=== PATIENT | male | born 1970 | race Caucasian/White ===

== ENCOUNTER 2017-01-07 19:15 | Inpatient (IN) | payer OTHER ==
[~2017-01-07] VITALS: Ht 188 cm; Wt 100.8 kg
[2017-01-07] MEDS ORDERED: PRLSR20 PO (20:54)
--- NOTE | 2017-01-07 21:14 | DIAGNOSTIC IMAGING REPORT ---
CHEST ONE VIEW PORTABLE CLINICAL HISTORY: chest pain dyspnea COMPARISON STUDY: No previous studies for comparison. FINDINGS: The bones soft tissues and hemidiaphragms are normal. The cardiomediastinal silhouette is normal. The lungs are clear. The pulmonary vasculature is normal. IMPRESSION: Negative chest. Electronically signed by: Hermilo Saleem M.D. 01/07/2017 9:13 PM Dictated Date/Time: 01/07/2017 9:13 PM
[2017-01-07 21:17] LABS: INR 0.9 (0.9-1.1); PROTHROMBIN TIME (PATIENT) 9.9 SECONDS (9.0-12.0)
[2017-01-07 21:26] LABS: ALB/GLOB RATIO 0.9 (0.9-2); CALCIUM 9.3 mg/dl (8.5-10.1); CKMB/CK RATIO 0.4 (0-3.0); CREATININE 0.94 mg/dl (0.60-1.40); HEMATOCRIT 43.3 % (42-52); MEAN CELL VOLUME 88.9 fL (80-100); MEAN CORPUSCULAR HEMOGLOBIN 31.6 pg (25-34); MEAN CORPUSCULAR HGB CONC 35.6 g/dl (32-36); MEAN PLATELET VOLUME 9.6 fL (7.4-10.4); PLATELET COUNT 301 K/uL (130-400); POTASSIUM 3.6 mmol/L (3.5-5.1); RED BLOOD COUNT 4.87 M/uL (4.7-6.1); WHITE BLOOD COUNT 8.66 K/uL (4.8-10.8)
[2017-01-07] MEDS ORDERED: SODIUM CHLORIDE 0.9% 1000ML 1,000 ML IV STA (22:46)
[2017-01-07 23:04] LABS: URINE APPEARANCE CLEAR (CLEAR); URINE BILIRUBIN NEG (NEG); URINE COLOR YELLOW; URINE NITRITE NEG (NEG); URINE SPECIFIC GRAVITY 1.026 (1.000-1.030); UROBILINOGEN NEG (NEG); ZZUR CULT IF INDIC CLEAN CATCH NO
[2017-01-07 23:09] LABS: MANUAL MICROSCOPIC REQUIRED? NO; REVIEW REQ? NO
[2017-01-07 23:31] LABS: BENZODIAZEPINE, URINE NEG (NEG); COCAINE,URINE NEG (NEG); PHENCYCLIDINE, URINE NEG (NEG)
[2017-01-08] MEDS ORDERED: NURSING VERBAL MED ORDER ONE ×2 (01:30→15:45)
[2017-01-08 01:55] VITALS: O2SAT 99
[2017-01-08] MEDS ORDERED: ACETAMINOPHEN 325 MG TAB PO PRN (02:00)
[2017-01-08] MEDS ORDERED: MAGNESIUM HYDROXIDE SUSP 30 ML UDC PO PRN (02:00)
[2017-01-08] MEDS ORDERED: SODIUM CHLORIDE 0.65% NA SOLN 45 ML (OCEAN) PRN (02:00)
[2017-01-08] MEDS ORDERED: BISMUTH SUBSALICYLATE PER ML OMNICELL CHARGE PO PRN (02:00)
[2017-01-08] MEDS ORDERED: ALUMINUM/MAGNESIUM SUSP 30 ML UDC PO PRN (02:00)
[2017-01-08] MEDS ORDERED: hydrOXYzine HCL 25 MG TAB PO PRN ×2 (02:00)
[2017-01-08 03:00] VITALS: BP 122/82; PULSE 72; TEMP 36.9; Ht 188 cm; Wt 100.8 kg
--- NOTE | 2017-01-08 06:07 | EMERGENCY ROOM VISIT NOTE ---
History First contact with patient: 21:28 Chief Complaint: CHEST PAIN Stated Complaint: CHEST PAINS Nursing Triage Summary: pt c/o cp for ast week and is getting worse and increased in frequncy History of Present Illness The patient is a 46 year old male who presents to the Emergency Room with complaints of intermittent chest pain for the past week that is increasing in severity. Patient states the chest pain has been intermittent and lasts for 5- 10 minutes at first 2-3 times a day to the left upper chest. He complains of some nausea and mild source of breath. No recent travel. Patient states she's been stressed lately and feels depressed. No thoughts of suicidal or homicidal ideations. No delusions. Patient denies abdominal pain, fever, chills, cough, congestion, leg pain or swelling. No drug use. He does not smoke. He is stressed test 10 years ago that was normal per patient. Review of Systems See HPI for pertinent positives & negatives. A total of 10 systems reviewed and were otherwise negative. Past Medical/Surgical History Depression, asthma, GERD Social History Smoking Status: Former Smoker Occupation Status: [employer] student Current/Historical Medications Scheduled Omeprazole (Prilosec), 20 MG PO QAM Allergies Coded Allergies: Ibuprofen (Verified Allergy, Unknown, stomach sensitivity, 01/07/17) Prednisone (Verified Allergy, Unknown, sob, 01/07/17) Sertraline (Verified Allergy, Unknown, nerves felt like on fire, 01/07/17) Physical Exam Vital Signs Date Time Temp Pulse Resp B/P Pulse Ox O2 Delivery O2 Flow Rate FiO2 01/08/17 01:55 85 16 122/82 99 01/08/17 01:03 85 16 122/82 99 Room Air 01/08/17 00:24 86 01/07/17 22:48 101 20 128/79 Room Air 01/07/17 20:37 Room Air 01/07/17 20:37 97 01/07/17 20:24 106 01/07/17 19:24 36.9 108 18 141/87 98 Room Air Physical Exam VITALS: Vitals are noted on the nurse's note and reviewed by myself. Vital signs stable. GENERAL: Pleasant male mildly depressed appearing, in no acute distress, nondiaphoretic, well-developed well-nourished. SKIN: The skin was without rashes, erythema, edema, or bruising. There is no tenting of the skin. Capillary reflex less than 2 seconds. HEAD: Normocephalic atraumatic. EARS: External auditory canals clear, tympanic membranes pearly topete without erythema or effusion bilaterally. EYES: Pupils equal round and reactive to light and accommodation. Conjunctivae without injection, sclerae without icterus. Extraocular movements intact. NOSE: Patent, turbinates without inflammation or discharge. MOUTH: Mucous membranes moist. Pharynx without erythema or exudate. Uvula midline. Airway patent. Tongue does not deviate. NECK: Supple without nuchal rigidity. No lymphadenopathy. No thyromegaly. Cervical spine is nontender. No JVD. HEART: Regular rate and rhythm without murmurs gallops or rubs. Chest nontender to palpation LUNGS: Clear to auscultation bilaterally without wheezes, rales or rhonchi. No dullness to percussion. No retractions or accessory muscle use. ABDOMEN: Positive bowel sounds x 4. Normal tympanic percussion. Soft, nontender, without masses or organomegaly. Ferguson sign negative. No guarding or rebound tenderness. MUSCULOSKELETAL: No muscle atrophy, erythema, or edema noted. NEURO: Patient was alert and oriented to person place and time. Normal sensation to light and sharp touch. No focal neurological deficits. Psych: Cooperative pleasant and depressed appearing Medical Decision & Procedures Laboratory Results 01/07/17 20:30 01/07/17 20:30 Test 01/07/17 20:30 01/07/17 20:42 01/07/17 22:15 01/07/17 23:10 Red Blood Count 4.87 M/uL (4.7-6.1) Mean Corpuscular Volume 88.9 fL (80-100) Mean Corpuscular Hemoglobin 31.6 pg (25-34) Mean Corpuscular Hemoglobin Concent 35.6 g/dl (32-36) RDW Standard Deviation 42.7 fL (36.4-46.3) RDW Coefficient of Variation 13.2 % (11.5-14.5) Mean Platelet Volume 9.6 fL (7.4-10.4) Prothrombin Time 9.9 SECONDS (9.0-12.0) Prothromb Time International Ratio 0.9 (0.9-1.1) Activated Partial Thromboplast Time 26.1 SECONDS (21.0-31.0) Partial Thromboplastin Ratio 1.0 D-Dimer 300 ug/L FEU (0-500) Anion Gap 10.0 mmol/L (3-11) Est Creatinine Clear Calc Drug Dose 124.8 ml/min Estimated GFR () 112.2 Estimated GFR (Non- 96.8 BUN/Creatinine Ratio 26.0 (10-20) Calcium Level 9.3 mg/dl (8.5-10.1) Total Bilirubin 0.4 mg/dl (0.2-1) Aspartate Amino Transf (AST/SGOT) 35 U/L (15-37) Alanine Aminotransferase (ALT/SGPT) 49 U/L (12-78) Alkaline Phosphatase 74 U/L (45-117) Total Creatine Kinase 369 U/L (39-308) Creatine Kinase MB 1.6 ng/ml (0.5-3.6) Creatine Kinase MB Ratio 0.4 (0-3.0) Total Protein 8.5 gm/dl (6.4-8.2) Albumin 4.0 gm/dl (3.4-5.0) Globulin 4.5 gm/dl (2.5-4.0) Albumin/Globulin Ratio 0.9 (0.9-2) Thyroid Stimulating Hormone (TSH) 3.430 uIu/ml (0.300-4.500) Chemistry Specimen Hemolysis Bedside Troponin I 0.000 ng/ml (0-0.045) Urine Color YELLOW Urine Appearance CLEAR (CLEAR) Urine pH 6.0 (4.5-7.5) Urine Specific [place] 1.026 (1.000-1.030) Urine Protein NEG (NEG) Urine Glucose (UA) NEG (NEG) Urine Ketones NEG (NEG) Urine Occult Blood NEG (NEG) Urine Nitrite NEG (NEG) Urine Bilirubin NEG (NEG) Urine Urobilinogen NEG (NEG) Urine Leukocyte Esterase NEG (NEG) Urine Opiates Screen NEG (NEG) Urine Methadone, Qualitative NEG (NEG) Urine Barbiturates NEG (NEG) Urine Phencyclidine (PCP) Level NEG (NEG) Ur Amphetamine/Methamphetamine NEG (NEG) MDMA (Ecstasy) Screen NEG (NEG) Urine Benzodiazepines Screen NEG (NEG) Urine Cocaine Metabolite NEG (NEG) Urine Marijuana (THC) NEG (NEG) Troponin I < 0.015 ng/ml (0-0.045) Medications Administered Medications (Trade) Dose Ordered Sig/Valeriano Route Start Time Stop Time Status Last Admin Dose Admin Sodium Chloride (Nss 1000ml) 1,000 ml @ 999 mls/hr Q1H1M STAT IV 01/07/17 22:46 01/07/17 23:46 DC 01/07/17 23:02 999 MLS/HR ED Course Prior records/ancillary studies reviewed. Triage Nursing notes reviewed. The patient's history was concerning for chest pain depression. Differential diagnosis: Etiologies such as cardiac ischemia, aortic dissection, pulmonary embolism, pneumonia, pneumothorax, musculoskeletal, infections, pericarditis, myocarditis , esophageal rupture, gastrointestinal, depression as well as others were entertained. Physical examination: As above. ER treatment provided: By mouth fluids On reassessment the patient felt better. Diagnostic interpretation by me: The electrocardiogram was negative for pathologic change. Normal sinus, normal intervals, no acute ST-T wave changes. Impression normal sinus rhythm interpreted by myself The labs revealed negative troponin 2 Negative d-dimer Imaging studies: Chest x-ray as aboveCHEST ONE VIEW PORTABLE CLINICAL HISTORY: chest pain dyspnea COMPARISON STUDY: No previous studies for comparison. FINDINGS: The bones soft tissues and hemidiaphragms are normal. The cardiomediastinal silhouette is normal. The lungs are clear. The pulmonary vasculature is normal. IMPRESSION: Negative chest. Electronically signed by: Hermilo Saleem M.D. Consultation: A consultation was placed with the [facility] specialists, S. and evaluated the patient. The case was discussed and diagnostics were reviewed. The patient was evaluated in the ER for further treatment. They recommended inpatient admission Exam and history seem consistent with chest pain that is noncardiac in etiology along with depression. Patient was evaluated by behavioral health and recommends admission. I feel like this is reasonable. Patient was admitted to 3 S. in stable condition. Patient was agreeable. Patient denied suicidal or homicidal ideations to myself. Patient was admitted for behavioral health concerns 20 years ago. He has not been on any recent psychiatric medications.By the evaluation outlined above emergent etiologies such as cardiac ischemia, aortic dissection, pulmonary embolism, pneumonia, pneumothorax , infections, pericarditis, myocarditis, gastrointestinal, as well as others were deemed relatively unlikely. The pt informed about the findings as listed above. All questions were answered and pleased with the treatment. Case reviewed with my attending Medical Decision As above Impression Primary Impression: Depression Additional Impression: Non-cardiac chest pain Departure Information Dispostion Other (behavioral health) Condition FAIR Referrals Twlya Russo (PCP) Patient Instructions [facility] Problem Qualifiers Primary Impression: Depression Depression Type: unspecified Qualified Codes: F32.9 - Major depressive disorder, single episode, unspecified
[2017-01-08 07:29] VITALS: BP_SYST 118; BP_DIAS 75; BP_DIAS 79; PULSE 75; TEMP 36.5
[2017-01-08] MEDS: ESCITALOPRAM OXALATE 10 MG TAB PO SCH (12:47)
[2017-01-08] MEDS ORDERED: PANTOprazole SOD 40 MG TAB PO ONE (16:00)
--- NOTE | 2017-01-08 17:01 | Psychiatric History & Physical ---
History Identifying Data Aristides Crawford is a 46-year-old male. Aristides Crawford was admitted on a 201 voluntary commitment. Patient is admitted from home. The patient was brought to the ED by self transport. Information provided by the patient is considered to be reliable. Chief Complaint "Chest pain". History of Present Illness 46 year old male who presents to hospital with chest pain. He admits to feeling more depressed and anxious over the course of the past couple months and gradually worsening. Aggravating his mood are triggers that friend in September 2016 and his 75yo mother recently diagnosed with breast cancer and had mastectomy and lymph nodectomy and following this she suffered a stroke. 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 Denies any manic episodes. Chronic history of excessive anxiety about things such as global warming, pollution and overpopulation. Poor concentration. Low energy level. Decreased energy. Sleeping 4 to 6 hours per night. Decreased interest in photography. Denies thoughts to harm himself or others currently. "My reason for being here is that my is that my problems have gotten so bad that I don't want to get to point of having thoughts to harm myself. Denies auditory hallucinations. Hypnopompic visual hallucinations upon awakening. Denies paranoia. Past Psychiatric History Current OP Treatment: no current treatment Prior OP Treatment: therapist (Sammi Ballard around 1999.) Prior Psych Hospitalizations: [facility] (1990) Past Medical/Surgical History History of Obesity: No History of HTN: No History of Diabetes: No History of Heart Disease: No History of Dyslipidemia: No History of Concussion/Seizure: No Problem List: (1) Generalized anxiety disorder GERD. Allergies Allergies: Coded Allergies: Ibuprofen (Verified Allergy, Unknown, stomach sensitivity, 01/07/17) Prednisone (Verified Allergy, Unknown, sob, 01/07/17) Sertraline (Verified Allergy, Unknown, nerves felt like on fire, 01/07/17) Home Medications Scheduled Omeprazole (Prilosec), 20 MG PO QAM Family History Mother had a possible history of depression and attempted suicide in the mid to late 1969's. Sister has bipolar disorder. Brother - drug abuse. Father - alcohol abuse. Nephew - drug and alcohol abuse. Sister - drug abuse. Diabetes - maternal uncle, maternal grandmother and mother (borderline). 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.) Relationship History: never Children: None Spiritual Affiliation: None Legal History: none Abuse History: none Review of Systems Constitutional: see HPI Eyes: denies: as stated in HPI, blurred vision, discharge, double vision, eye pain, itching, no symptoms, other, photophobia, redness, tearing, visual changes ENT: denies: dental pain, ear discharge, ear pain, epistaxis, gum swelling, loss of hearing, mouth pain, mouth swelling, nasal congestion, nasal pain, no symptoms reported, other, rhinorrhea, see HPI, sore throat, stidor, throat swelling, tinnitus Cardiovascular: reports: chest pain (prior to admission) Respiratory: denies: SALINAS, PND, cough, cyanosis, no symptoms reported, orthopnea , other, see HPI, short of breath, sputum production, stridor, wheezing Gastrointestinal: denies no symptoms reported, denies see HPI, denies abdominal pain, denies constipation, denies diarrhea, denies nausea, denies vomiting, denies other Genitourinary - Male: denies: amenorrhea, impotence, no symptoms, other, penile discharge, penile itching, rash, see HPI, testicular pain, testicular swelling Musculoskeletal: denies no symptoms reported, denies see HPI, denies back pain , denies gout, denies joint pain, denies joint swelling, denies muscle pain, denies muscle stiffness, denies neck pain, denies other Integumentary: denies no symptoms reported, denies see HPI, denies change in color, denies change in hair/nails, denies dryness, denies lesions, denies lumps , denies rash, denies other Neurologic: denies: dizziness, focal weakness, general weakness, headache, lethargy, memory loss, no symptoms, numbness, other, paresthesias, pre-existing deficit, see HPI, seizure, tics, tingling, tremors, vertigo Endocrine: denies: as stated in HPI, cold intolerance, goiter, hair changes, heat intolerance, no symptoms, other, polydipsia, polyuria, skin changes Hematologic / Lymphatic: denies: abnormal clotting, adenopathy, anemia, as stated in HPI, easy bleeding, easy bruising, gums bleeding, no symptoms, other, petechiae Examination Physical Examination Reviewed and accepted physical exam completed by Bonnie Mayo PA-C. Vital Signs Vital Signs Past 12 Hours Date Time Temp Pulse Resp B/P Pulse Ox O2 Delivery O2 Flow Rate FiO2 01/08/17 07:29 36.5 75 16 118/75 118/79 01/08/17 06:52 Laboratory Results Last 24 Hours Test 01/07/17 20:30 01/07/17 20:42 01/07/17 22:15 01/07/17 23:10 White Blood Count 8.66 K/uL Red Blood Count 4.87 M/uL Hemoglobin 15.4 g/dL Hematocrit 43.3 % Mean Corpuscular Volume 88.9 fL Mean Corpuscular Hemoglobin 31.6 pg Mean Corpuscular Hemoglobin Concent 35.6 g/dl RDW Standard Deviation 42.7 fL RDW Coefficient of Variation 13.2 % Platelet Count 301 K/uL Mean Platelet Volume 9.6 fL Prothrombin Time 9.9 SECONDS Prothromb Time International Ratio 0.9 Activated Partial Thromboplast Time 26.1 SECONDS Partial Thromboplastin Ratio 1.0 D-Dimer 300 ug/L FEU Sodium Level 141 mmol/L Potassium Level 3.6 mmol/L Chloride Level 105 mmol/L Carbon Dioxide Level 26 mmol/L Anion Gap 10.0 mmol/L Blood Urea Nitrogen 24 mg/dl Creatinine 0.94 mg/dl Est Creatinine Clear Calc Drug Dose 124.8 ml/min Estimated GFR () 112.2 Estimated GFR (Non- 96.8 BUN/Creatinine Ratio 26.0 Random Glucose 104 mg/dl Calcium Level 9.3 mg/dl Total Bilirubin 0.4 mg/dl Aspartate Amino Transf (AST/SGOT) 35 U/L Alanine Aminotransferase (ALT/SGPT) 49 U/L Alkaline Phosphatase 74 U/L Total Creatine Kinase 369 U/L Creatine Kinase MB 1.6 ng/ml Creatine Kinase MB Ratio 0.4 Total Protein 8.5 gm/dl Albumin 4.0 gm/dl Globulin 4.5 gm/dl Albumin/Globulin Ratio 0.9 Thyroid Stimulating Hormone (TSH) 3.430 uIu/ml Chemistry Specimen Hemolysis Bedside Troponin I 0.000 ng/ml Urine Color YELLOW Urine Appearance CLEAR Urine pH 6.0 Urine Specific [place] 1.026 Urine Protein NEG Urine Glucose (UA) NEG Urine Ketones NEG Urine Occult Blood NEG Urine Nitrite NEG Urine Bilirubin NEG Urine Urobilinogen NEG Urine Leukocyte Esterase NEG Urine Opiates Screen NEG Urine Methadone, Qualitative NEG Urine Barbiturates NEG Urine Phencyclidine (PCP) Level NEG Ur Amphetamine/Methamphetamine NEG MDMA (Ecstasy) Screen NEG Urine Benzodiazepines Screen NEG Urine Cocaine Metabolite NEG Urine Marijuana (THC) NEG Troponin I < 0.015 ng/ml Mental Examination During interview pt is: alert and oriented, cooperative Appearance: appropriately dressed, appropriately groomed Eye contact is: fair Motor behavior is: steady gait & station Speech: normal in rate, rhythm & volume Affect: mood congruent Mood is: depressed, anxious Thought process: goal directed Thought content: reality based without delusions Suicidal thought are: denied Homicidal thoughts are: denied Hallucinations: visual (sees images upon awakening), denies auditory Cognition: memory grossly intact, attention grossly intact, language grossly intact Intelligence estimated to be: consistent with level of education Insight: good Judgement: good Impression / Recommendations Impression 46 year old male with progress worsening of depression and anxiety over the past few months that has progressed to point that he fears that he may harm himself. Risk Factors Assessment Male: Yes : Yes /single/: Yes Access to guns: No Previous psychiatric stay: Yes Protective Factors Assessment Tenriism beliefs: No : No Responsible for young children: No Employed: No Recommendations To address depression and anxiety and patient's fear of reaching point of harming himself will: -place patient on q15 minute checks -participate in groups and treatment milieu environment -assess appropriate disposition plans -discussed risks, benefits and alternatives of Lexapro including risk of increased suicidal thoughts and patient agrees to initiate at 10mg every morning. CPT Code Initial Hospital Care: [id number]
[2017-01-09 06:40] VITALS: BP_SYST 106; BP_SYST 112; BP_DIAS 67; BP_DIAS 78; PULSE 66; PULSE 71; TEMP 36.6
[2017-01-09] MEDS: ESCITALOPRAM OXALATE 10 MG TAB PO SCH (08:29)
[2017-01-09] MEDS: PANTOprazole SOD 40 MG TAB PO SCH (08:29)
--- NOTE | 2017-01-09 13:19 | Psychiatric Progress Notes ---
Progress Note Date of Service Jan 09, 2017. Interval History Patient admitted to address depression and anxiety. Started on Lexapro to address depression and anxiety. Chief Complaint "Mood improving". Subjective Patient was seen & assessed interval progress reviewed with Treatment Team. Patient reports that his mood is improving significantly with support of milieu therapy on unit. He is tolerating Lexapro well without any significant side effects. Review of Systems Constitutional: No chills, No fatigue, No fever, No problem reported, No sweats , No weakness, No weight loss ENT: No dental problems, No hearing loss, No nasal symptoms, No problem reported, No sore throat, No tinnitus, No trouble swallowing, No unusual epistaxis Respiratory: No cough, No dyspnea at rest, No dyspnea on exertion, No hemoptysis, No problem reported, No shortness of breath, No sputum, No wheezing Cardiovascular: No PND, No chest pain, No claudication, No edema, No orthopnea , No palpitations, No problem reported Abdomen: No GI bleeding, No constipation, No diarrhea, No nausea, No pain, No problem reported, No vomiting Musculoskeletal: No calf pain, No joint pain, No muscle pain, No problem reported, No swelling Neurologic: No balance problems, No memory loss, No numbness/tingling, No paralysis, No problem reported, No vertigo, No weakness Psychiatric: + anxiety, + depression symptoms Integumentary: No bleeding, No color change, No itch, No new/changing skin lesions, No problem reported, No rash Sleep Information Total Hours of Sleep: 5.50 Meal Information Percent of Breakfast Consumed: 100 Percent of Lunch Consumed: 100 Percent of Dinner Consumed: 80 Mental Status Exam During interview pt is: alert and oriented, cooperative Appearance: appropriately dressed, appropriately groomed Eye contact is: fair Motor behavior is: steady gait & station Speech: normal in rate, rhythm & volume Affect: mood congruent Mood is: depressed, anxious Thought process: goal directed Thought content: reality based without delusions Suicidal thought are: denied Homicidal thoughts are: denied Hallucinations: visual (sees images upon awakening), denies auditory Cognition: memory grossly intact, attention grossly intact, language grossly intact Intelligence estimated to be: consistent with level of education Insight: good Judgement: good Impression 46 year old male with progress worsening of depression and anxiety over the past few months that has progressed to point that he fears that he may harm himself. Continued Inpatient Care Patient continues to need inpatient level of care. Plan (1) Depression To address depression and anxiety and patient's fear of reaching point of harming himself will: -place patient on q15 minute checks -participate in groups and treatment milieu environment -assess appropriate disposition plans -Will continue Lexapro 10mg every morning. (2) Generalized anxiety disorder To address depression and anxiety and patient's fear of reaching point of harming himself will: -place patient on q15 minute checks -participate in groups and treatment milieu environment -assess appropriate disposition plans -Will continue Lexapro 10mg every morning. Discharge / Aftercare Planning Primary Care Physician: Name: moody Psychiatrist: Name: moody Therapist: Name: moody Book Coverer: Name: moody Visit Code E&M Code: 73121 Risk Factors Assessment Male: Yes : Yes /single/: Yes Previous psychiatric stay: Yes Protective Factors Assessment Congregational beliefs: No : No Responsible for young children: No Employed: No Data Vital Signs Last 24 Hrs: Date Time Temp Pulse Resp B/P Pulse Ox O2 Delivery O2 Flow Rate FiO2 01/09/17 06:40 36.6 66 16 106/67 71 112/78 Meds Administered Last 24 Hrs: Meds Administered (Past 24Hrs) Medications (Trade) Dose Ordered Sig/Valeriano Route Start Time Stop Time Status Last Admin Dose Admin Sodium Chloride (Nss 1000ml) 1,000 ml @ 999 mls/hr Q1H1M STAT IV 01/07/17 22:46 01/07/17 23:46 DC 01/07/17 23:02 999 MLS/HR Pantoprazole Sodium (Protonix Tab) 40 mg QAM PO 01/09/17 09:00 02/08/17 08:59 01/09/17 08:29 40 MG Escitalopram Oxalate (Lexapro Tab) 10 mg QAM PO 01/08/17 12:00 02/07/17 11:59 01/09/17 08:29 10 MG Pantoprazole Sodium (Protonix Tab) 40 mg 1600 ONCE PO 01/08/17 16:00 01/08/17 16:01 DC 01/08/17 15:48 40 MG Problem Qualifiers (1) Depression: Depression Type: major depressive disorder Major depression recurrence: recurrent Major depression episode severity: severe Psychotic features: without psychotic features
[2017-01-10 06:58] VITALS: BP_SYST 108; BP_SYST 119; BP_DIAS 69; BP_DIAS 82; PULSE 60; PULSE 80; TEMP 36.7
[2017-01-10] MEDS: PANTOprazole SOD 40 MG TAB PO SCH (08:39)
[2017-01-10] MEDS: ESCITALOPRAM OXALATE 10 MG TAB PO SCH (08:39)
--- NOTE | 2017-01-10 09:23 | Discharge Instructions ---
Discharge Information Report Includes Report will include the: Discharge Instructions & Summary Admission Admission Date / Time: Jan 08, 2017 at 02:20 Reason for Admission: Major Depressive Disorder Discharge Discharge Diagnosis / Problem: Depression, Generalied Anxiety Disorder Condition at Discharge: Good Discharge Goals Goal(s): Improve function, Improve disease control, Learn about illness, Therapeutic intervention Activity Recommendations Activity Limitations: per Instructions/Follow-up section . Instructions / Follow-Up Instructions / Follow-Up . SPECIAL CARE INSTRUCTIONS: 1. Follow through with your scheduled aftercare appointments. If unable to keep an appointment, please call to reschedule. As your psychiatric intake is not until February 16, we recommend you follow up with your PCP in the interim regarding your mood, anxiety, and antidepressant medication. 2. Take your medication only as prescribed. Medication should not be changed or stopped without the approval of your doctor. In the event of worsening symptoms or concerns about side effects, contact your doctor immediately. 3. Utilize new healthy coping skills, anger management skills, and stress management skills learned during your hospitalization. Journal feelings and process them with a support person. Identify stressors or situations that may result in relapse, deterioration or inappropriate behaviors and develop a plan to deal with those issues. 4. If your coping skills are ineffective and you are in crisis, contact your outpatient providers for direction. If unable to reach your providers, please call the CAN HELP LINE AT or go to the closest Emergency Room. 5. Avoid alcohol and un-prescribed drugs. 6. You have been provided with the Mental Health Advance Directives Pamphlet for your review. AFTERCARE APPOINTMENTS: * Please call your insurance company prior to your scheduled appointment to confirm your aftercare providers are covered. Take your insurance information to your appointments. . Discharge / Aftercare Planning Primary Care Physician: Name: moody Psychiatrist: Name: moody Therapist: Name Of Therapist: moody Head Up Operator Helper: Name: moody . Follow-Up Care Plan for Follow-Up Care: See above. Current Hospital Diet Patient's current hospital diet: Vegetarian Diet Discharge Diet Recommended Diet: Vegetarian Diet Procedures Procedures Performed: No Pending Studies Pending Studies at Discharge: No Medical Emergencies . Who to Call and When: Medical Emergencies: For questions or emergencies related to your hospital stay, please contact the Inpatient Behavioral Health Unit at [phone]. A news editor is on-call 24/7 for the Behavioral Health Unit for emergencies At any time you feel your situation is an emergency, you may also call 911 immediately. . Non-Emergent Contact Non-Emergency issues call your: Psychiatrist, Therapist Advance Directives Existing Advance Directive: No Do You Have an Existing Mental: No Existing Living Will: No Existing Power of Asbestos Hazard Abatement Worker: No Advance Directives Info Given: To Pt/S.O. Discharge Summary Admission HPI Per the Admitting provider: 46 year old male who presents to hospital with chest pain. He admits to feeling more depressed and anxious over the course of the past couple months and gradually worsening. Aggravating his mood are triggers that friend in September 2016 and his 75yo mother recently diagnosed with breast cancer and had mastectomy and lymph nodectomy and following this she suffered a stroke. 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 Denies any manic episodes. Chronic history of excessive anxiety about things such as global warming, pollution and overpopulation. Poor concentration. Low energy level. Decreased energy. Sleeping 4 to 6 hours per night. Decreased interest in photography. Denies thoughts to harm himself or others currently. "My reason for being here is that my is that my problems have gotten so bad that I don't want to get to point of having thoughts to harm myself. Denies auditory hallucinations. Hypnopompic visual hallucinations upon awakening. Denies paranoia. Admission Exam Per the Admitting provider: Please see admission H&P. Consultations None. Hospital Course (1) Depression To address depression and anxiety and patient's fear of reaching point of harming himself will: -place patient on q15 minute checks -participate in groups and treatment milieu environment -assess appropriate disposition plans -will continue Lexapro 10mg every morning. (2) Generalized anxiety disorder To address depression and anxiety and patient's fear of reaching point of harming himself will: -place patient on q15 minute checks -participate in groups and treatment milieu environment -assess appropriate disposition plans -Will continue Lexapro 10mg every morning. Risk Factors Assessment Male: Yes : Yes /single/: Yes Previous psychiatric stay: Yes Protective Factors Assessment Scientology beliefs: No : No Responsible for young children: No Employed: No Stable relationships: Yes Absence of risk factors above: Yes (Risk factors mitigated by starting medication for mood and anxiety, participating in groups and therapy here, referring for outpatient mental health treatment, and working on healthy coping skills and discharge safety plan. He has demonstrated improvement in mood and has consistently denied SI. He is requesting discharge and as he is no longer at acute risk of harm to himself, can be managed as an outpatient at this time. No significant risk for harm to others.) Day of Discharge Assessment Hospital Course: On admission, patient was started on escitalopram to target mood and anxiety symptoms. He has been an active participant in groups and unit programming. He has been taking medication as prescribed and attending to his ADLs independently. He has denied SI throughout his stay, and has not engaged in self injurious behavior. He has been eating and sleeping well. Day of Discharge Assessment: Patient reports mood is "good," improved from admission, and denies SI. He slept well last night which helped. Appetite is "more normal," and has been eating well. He denies side effects to medication. He has found hospitalization helpful to work on ways to cope, as "a respite from stressors," and to be started on medication. He has memorized 300 digits of the number pi, which he thinks improves focus and helps with critical thinking. He is able to review the coping skills and safety plan he's developed here. He is planning to return to his studies, meet with his advisor about making up work he's missed, and has some other appointments coming up in the next few days. He is hoping to go home today and denies any concerns for his safety. He is willing to follow up with outpatient mental health care. Well nourished, well developed WM appearing stated age. Casually dressed and adequately groomed. Calm and cooperative. Seated in NAD, with fair eye contact and no abnormal movements. Speech is normal rate, volume, and tone. Mood is "good," and affect is stable and congruent. Thoughts are linear, logical and goal directed. The patient denied suicidal and homicidal ideation and was able to safety plan. No paranoia, delusions, or hallucinations, and did not appear to be responding to internal stimuli. Cognition was grossly intact. Alert and oriented to person, place and time. Intelligence is consistent with level of education. Insight and and judgment are fair. Laboratory Test 01/07/17 20:30 01/07/17 20:42 01/07/17 22:15 01/07/17 23:10 White Blood Count 8.66 Red Blood Count 4.87 Hemoglobin 15.4 Hematocrit 43.3 Mean Corpuscular Volume 88.9 Mean Corpuscular Hemoglobin 31.6 Mean Corpuscular Hemoglobin Concent 35.6 RDW Standard Deviation 42.7 RDW Coefficient of Variation 13.2 Platelet Count 301 Mean Platelet Volume 9.6 Prothrombin Time 9.9 Prothrombin Time INR 0.9 PTT 26.1 Partial Thromboplastin Ratio 1.0 D-Dimer 300 Sodium Level 141 Potassium Level 3.6 Chloride Level 105 Carbon Dioxide Level 26 Anion Gap 10.0 Blood Urea Nitrogen 24 H Creatinine 0.94 Est Creatinine Clear Calc Drug Dose 124.8 Estimated GFR () 112.2 Estimated GFR (Non- 96.8 BUN/Creatinine Ratio 26.0 H Random Glucose 104 H Calcium Level 9.3 Total Bilirubin 0.4 Aspartate Amino Transferase (AST) 35 Alanine Aminotransferase (ALT) 49 Alkaline Phosphatase 74 Total Creatine Kinase 369 H Creatine Kinase MB 1.6 Creatine Kinase MB Ratio 0.4 Total Protein 8.5 H Albumin 4.0 Globulin 4.5 H Albumin/Globulin Ratio 0.9 Thyroid Stimulating Hormone (TSH) 3.430 Chemistry Specimen Hemolysis POC Troponin I 0.000 Urine Color YELLOW Urine Appearance CLEAR Urine pH 6.0 Urine Specific [place] 1.026 Urine Protein NEG Urine Glucose (UA) NEG Urine Ketones NEG Urine Occult Blood NEG Urine Nitrite NEG Urine Bilirubin NEG Urine Urobilinogen NEG Urine Leukocyte Esterase NEG Urine Opiates Screen NEG Urine Methadone, Qualitative NEG Urine Barbiturates NEG Urine Phencyclidine (PCP) Level NEG Ur Amphetamine/Methamphetamine NEG MDMA (Ecstasy) Screen NEG Urine Benzodiazepines Screen NEG Urine Cocaine Metabolite NEG Urine Marijuana (THC) NEG Troponin I < 0.015 Total Time Total Time Spent (min): Greater than 30 minutes Total Time Included: examination of the patient, discharge planning, medication reconciliation Tobacco Cessation at Discharge FDA approved Prescription: non-smoker Problem Qualifiers (1) Depression: Depression Type: major depressive disorder Major depression recurrence: recurrent Major depression episode severity: severe Psychotic features: without psychotic features
[2017-01-10] MEDS ORDERED: LXP10 PO (09:48)
== END 2017-01-10 11:48 | disposition home or self-care (01) | DRG 885 ==
LOC: C.EDB 19:17 → C.MHU 01-08 02:20
PROVIDERS: ADMIT Psychiatry & Neurology Psychiatry; ATTEND Psychiatry & Neurology Psychiatry
DX: F33.2 Major depressive disorder, recurrent severe without psychotic features (principal); R07.89 Other chest pain; F41.1 Generalized anxiety disorder; J45.909 Unspecified asthma, uncomplicated; K21.9 Gastro-esophageal reflux disease without esophagitis; Z87.891 Personal history of nicotine dependence; Z79.899 Other long term (current) drug therapy; Z81.8 Family history of other mental and behavioral disorders; Z81.1 Family history of alcohol abuse and dependence; Z81.3 Family history of other psychoactive substance abuse and dependence

== ENCOUNTER → 2017-06-09 | Outpatient (CLI) | payer OTHER ==
[~2017-06-09] MED LIST: LXP10 PO; PRLSR20 PO
--- NOTE | 2017-06-09 15:52 | DIAGNOSTIC IMAGING REPORT ---
RIGHT TOE(S) MIN 2 VIEWS CLINICAL HISTORY: PAIN IN R TOE Right pain COMPARISON: None. DISCUSSION: Tiny avulsion dorsal aspect distal phalanx no evidence of dislocation. Soft tissue edema. IMPRESSION: Small avulsion base distal phalanx. The above report was generated using voice recognition software. It may contain grammatical, syntax or spelling errors. Electronically signed by: Hermilo Saleem M.D. 06/09/2017 3:51 PM Dictated Date/Time: 06/09/2017 3:47 PM
== END | disposition home or self-care (01) ==
LOC: C.RAD 15:04
PROVIDERS: ATTEND Family Medicine
DX: S92.911A Unspecified fracture of right toe(s), initial encounter for closed fracture (principal); X58.XXXA Exposure to other specified factors, initial encounter

== ENCOUNTER → 2017-06-16 | Outpatient (CLI) | payer OTHER ==
[2017-06-16 13:22] LABS: HEMATOCRIT 43.5 % (42-52); MEAN CELL VOLUME 92.9 fL (80-100); MEAN CORPUSCULAR HEMOGLOBIN 31.6 pg (25-34); MEAN PLATELET VOLUME 9.1 fL (7.4-10.4); PLATELET COUNT 288 K/uL (130-400); RED BLOOD COUNT 4.68 M/uL (4.7-6.1); WHITE BLOOD COUNT 7.77 K/uL (4.8-10.8)
[2017-06-16 14:23] LABS: ALT/SGPT 44 U/L (12-78); BLOOD UREA NITROGEN 16 mg/dl (7-18); BUN/CREATININE RATIO 17.6 (10-20); CALCIUM 8.7 mg/dl (8.5-10.1); CARBON DIOXIDE 30 mmol/L (21-32); CHLORIDE 107 mmol/L (98-107); CHOLESTEROL 218 mg/dl (0-200); CREATININE 0.91 mg/dl (0.60-1.40); GLUCOSE 86 mg/dl (70-99); POTASSIUM 4.2 mmol/L (3.5-5.1); SODIUM 140 mmol/L (136-145); TRIGLYCERIDES 167 mg/dl (0-150); VERY LOW DENSITY LIPOPROT CALC 33 mg/dl
[2017-06-16 14:28] LABS: ALB/GLOB RATIO 0.9 (0.9-2); ALKALINE PHOSPHATASE 68 U/L (45-117); AST/SGOT 29 U/L (15-37); CHOLESTEROL/HDL RATIO 6.6; FREE PSA 0.07 ng/ml; HDL CHOLESTEROL 33 mg/dl; LDL CHOLESTEROL CALCULATED 152 mg/dl; PROSTATE SPECIFIC ANTIGEN 0.353 ng/ml (0.000-4.000)
== END | disposition home or self-care (01) ==
LOC: C.LAB 12:43
PROVIDERS: ATTEND Family Medicine
DX: L50.1 Idiopathic urticaria (principal); R32 Unspecified urinary incontinence; Z82.3 Family history of stroke

== ENCOUNTER → 2018-01-16 | Day surgery (SDC) | payer OTHER ==
[2018-01-03 12:58] VITALS: Ht 188 cm; Wt 97.7 kg
[~2018-01-16] VITALS: Ht 188 cm; Wt 97.7 kg
[~2018-01-16] MED LIST changes: +ACET-749 PO; +CETI10TA84 PO; -LXP10 PO; +MULT-506 PO; +SODIUM CHLORIDE 0.9% 500ML 500 ML IV ONE
--- NOTE | 2018-01-16 09:32 | Endo History and Physical ---
History & Physical Date of Service: Jan 16, 2018. Chief Complaint: Screening, Family history of colon cancer Referring Physician: Dr. Quarles History of Present Illness 48 yo CM who presents for screening colonoscopy and family history of colon cancer. Past Surgical History Hx Cardiac Surgery: No Hx Internal Defibrillator: No Hx Pacemaker: No Hx Abdominal Surgery: Yes (APPY) Hx of Implantable Prosthesis: No Hx Post-Op Nausea and Vomiting: No Hx Cancer Surgery: No Hx Thoracic Surgery: No Hx Orthopedic: No Hx Urinary Tract Surgery: No Family History Colon CA, Polyp Social History Smoking Status: Never Smoker Hx Substance Use: No Hx Alcohol Use: No Allergies Coded Allergies: Ibuprofen (Verified Allergy, Unknown, stomach sensitivity, 01/16/18) Prednisone (Verified Allergy, Unknown, sob AND RACING HEART, 01/16/18) Sertraline (Verified Allergy, Unknown, nerves felt like on fire, 01/16/18) Current Medications Reported Home Medications Medications Dose Route/Sig Max Daily Dose Days Date Category Multivitamin (Multivitamins) Tab 1 Tab PO DAILY 01/03/18 Reported Tylenol W/Codeine #3 (Acetaminophen/Codeine Phosphate) 300 Mg/30 Mg Tab 1-2 Tab PO Q6H PRN 01/03/18 Reported Prilosec (Omeprazole) 20 Mg Capcr 20 Mg PO DAILY 01/03/18 Reported Vital Signs Weight (Kilograms): 97.73 Height (Feet): 6 Height (Inches): 2 Date Time Temp Pulse Resp B/P (MAP) Pulse Ox O2 Delivery O2 Flow Rate FiO2 01/16/18 09:26 37 78 20 110/77 (88) 100 Room Air Physical Exam General Appearance: WD/WN, no apparent distress Respiratory/Chest: Auscultation: breath sounds normal Cardiovascular: Heart Auscultation: RRR Abdomen: Bowel Sounds: normal Inspection & Palpation: soft, non-distended, no tenderness, guarding & rebound Assessment and Plan Assessment: 48 yo CM who presents for screening colonoscopy and family history of colon cancer. Plan: Proceed with colonoscopy.
--- NOTE | 2018-01-16 10:15 | Discharge Instructions ---
Endoscopy Patient Instructions Date / Procedure(s) Performed Jan 16, 2018. Colonoscopy Allergy Information Coded Allergies: Prednisone (Verified Allergy, Unknown, sob AND RACING HEART, 01/16/18) Sertraline (Verified Allergy, Unknown, nerves felt like on fire, 01/16/18) Ibuprofen (Verified Adverse Reaction, Mild, stomach sensitivity, 01/16/18) Discharge Date / Findings Jan 16, 2018. Normal colonoscopy Medication Instructions OK to resume all medications today as prescribed Reported Home Medications Medications Dose Route/Sig Max Daily Dose Days Date Category Zyrtec (Cetirizine HCl) 10 Mg Tab 10 Mg PO DAILY 01/16/18 Reported Multivitamin (Multivitamins) Tab 1 Tab PO DAILY 01/03/18 Reported Prilosec (Omeprazole) 20 Mg Capcr 20 Mg PO DAILY 01/03/18 Reported Provider Instructions Activity Restrictions - No exercising or heavy lifting for 24 hours. - Do not drink alcohol the day of the procedure. - Do not drive a car or operate machinery until the day after the procedure. - Do not make any important decisions or sign important papers in 24 hours after the procedure. Following Day: - Return to full activity which may include returning to work/school. Diet Start your diet with liquids and light foods (jello, soup, juice, toast). Then eat your usual diet if not nauseated. Treatment For Common After Affects For mild abdominal pain, bloating, or excessive gas: - Rest - Eat lightly - Lie on right side Follow-Up Information Follow-up with Dr. Quarles as scheduled Anesthesia Information What You Should Know You have had a procedure that required some medicine to reduce anxiety and discomfort. This treatment is called moderate sedation. After receiving the treatment, you may be sleepy, but you will be able to breathe on your own. The effects of the treatment may last for several hours. Follow these instructions along with Activity/Diet recommendations noted above: * Do NOT do anything where dizziness or clumsiness would be dangerous. * Rest quietly at home today, then you can be up and about tomorrow. * Have a responsible person stay with you the rest of today. * You may have had an I.V. today. If so, you may take the dressing off later today. Recommendations Call your doctor if: * Trouble breathing * Continuous vomiting for more than 24 hours * Temperature above 101 degrees * Severe abdominal pain or bloating * Pain not relieved by pain medicine ordered * There is increased drainage or redness from any incision * A large amount of rectal bleeding greater than 2-3 tablespoons. (If you had a polyp/s removed or have hemorrhoids, a small amount of blood - from the rectum is to be expected.) * You have any unanswered questions or concerns. IN THE EVENT OF A SERIOUS EMERGENCY, GO TO THE NEAREST EMERGENCY ROOM Your discharge instructions were prepared by provider Shailesh Cote. Patient Instructions Signature Page Aristides Crawford Patient (or Guardian) Signature/Date: I have read and understand the instructions given to me by my caregivers. Caregiver/RN/Doctor Signature/Date: The above-named patient and/or guardian has received patient instructions on this date. + Original Patient Signature Page (only) stays with chart. Please make copy for patient.
[2018-01-16 10:17] VITALS: BP 120/81; PULSE 76; O2SAT 99
--- NOTE | 2018-01-16 10:24 | GI REPORT ---
Procedure Date: 01/16/2018 9:33 AM Procedure: Colonoscopy Indications: Screening for colorectal malignant neoplasm Medicines: Monitored Anesthesia Care Complications: No immediate complications. Estimated Blood Loss: Estimated blood loss: none. Procedure: Pre-Anesthesia Assessment: - Prior to the procedure, a History and Physical was performed, and patient medications and allergies were reviewed. The patient's tolerance of previous anesthesia was also reviewed. The risks and benefits of the procedure and the sedation options and risks were discussed with the patient. All questions were answered, and informed consent was obtained. Prior Anticoagulants: The patient has taken no previous anticoagulant or antiplatelet agents. ASA Grade Assessment: II - A patient with mild systemic disease. After reviewing the risks and benefits, the patient was deemed in satisfactory condition to undergo the procedure. After I obtained informed consent, the scope was passed under direct vision. Throughout the procedure, the patient's blood pressure, pulse, and oxygen saturations were monitored continuously. The patient tolerated the procedure well. The colonoscopy was performed without difficulty. The quality of the bowel preparation was good. The ileocecal valve, appendiceal orifice, and rectum were photographed. The scope was introduced through the anus and advanced to the cecum, identified by appendiceal orifice and ileocecal valve. Findings: The perianal and digital rectal examinations were normal. The entire examined colon appeared normal. Impression: - The entire examined colon is normal. - No specimens collected. Recommendation: - Resume previous diet. - Continue present medications. - Repeat colonoscopy in 10 years for surveillance. - Return to primary care physician as previously scheduled. Shailesh Cote DO 01/16/2018 10:24:32 AM This report has been signed electronically. Note Initiated On: 01/16/2018 9:33 AM I attest to the content of the Intraoperative Record and orders documented therein, exceptions below
== END | disposition home or self-care (01) ==
LOC: C.GI 08:52
PROVIDERS: ATTEND Internal Medicine
DX: Z12.11 Encounter for screening for malignant neoplasm of colon (principal); F32.9 Major depressive disorder, single episode, unspecified; Z90.89 Acquired absence of other organs; Z80.0 Family history of malignant neoplasm of digestive organs

== ENCOUNTER 2018-02-15 18:36 | Emergency (ER) | payer OTHER ==
[~2018-02-15] VITALS: Ht 188 cm; Wt 97.8 kg
[~2018-02-15 18:36] MED LIST changes: -ACET-749 PO; -SODIUM CHLORIDE 0.9% 500ML 500 ML IV ONE
[2018-02-15 18:45] VITALS: TEMP 37; Ht 188 cm; Wt 97.8 kg
[2018-02-15] MEDS ORDERED: HYDROCODONE/ACETAMIN 5/325MG TAB PO STA (19:06)
[2018-02-15] MEDS ORDERED: BUPIVACAINE/EPINEPHRINE 0.5% 1:200,000 1.8 ML CARP INFIL STA (19:18)
[2018-02-15] MEDS ORDERED: OXYCODONE IR HOME PACK PO STA (19:38)
--- NOTE | 2018-02-15 19:39 | EMERGENCY ROOM VISIT NOTE ---
ED Visit Note First contact with patient: 18:56 CHIEF COMPLAINT: Dental pain post surgery HISTORY OF PRESENT ILLNESS: This 48-year-old male patient presented to the emergency department, ambulatory, complaining of pain at the surgical site of a tooth extraction. The patient had bone fragments extracted from his lower jaw on Tuesday by a an oral surgeon in [place]. He states he was feeling well yesterday, however today his pain significantly worsened. He feels soft " skin that needs to slough off", but states it does not seem to want to slough. He was given a prescription for hydrocodone, however his insurance company requires a prior authorization for pain medication, and the prior authorization has not been submitted. The patient's symptoms have been progressively worsening, so he decided to come here for evaluation. He was under the impression that we had an oral surgeon on staff that could address his complaints. He states "I cannot do this much longer", and when I asked him if he was suicidal, he states "the pain is making me crazy". The pain is now steady and severe and radiates to the face. The patient does not have a dentist or surgeon follow-up appointment set up. His surgeon did try to return his phone call this evening, but the patient states he was already on his way here, so he did not answer the phone. They rate their pain a 9/10 and the ibuprofen and Tylenol they have been taking has not relieved the pain. Denies facial swelling or fever. The patient denies any discharge from the mouth. REVIEW OF SYSTEMS: A 6 system review of systems was completed with positives and pertinent negatives listed in the HPI. ALLERGIES: Ibuprofen, prednisone, sertraline MEDICATIONS: Omeprazole, cetirizine PMH: GERD SOCIAL HISTORY: The patient lives in [place] with family. He denies drug , alcohol, tobacco use. PHYSICAL EXAM: Vitals are noted on the nurse's note and reviewed by myself. Vital signs stable. Temperature 37.0C orally. GENERAL: This is a 48-year-old white male, in no acute distress, nondiaphoretic, well-developed well- nourished. Mouth: The gum in the posterior/lower left aspect of the mouth is swollen and tender around it, in the area of the patient's surgery, without any discharge or signs of an abscess. The remainder of the pharynx and tonsils are without erythema, edema, or exudate. The airway is patent. There is no facial swelling, cervical or submandibular lymphadenopathy. The patient appears uncomfortable and in pain. The patient has overall poor dental hygiene. EARS: External auditory canals clear, tympanic membranes pearly topete without erythema or effusion bilaterally. ED COURSE: The patient was seen and evaluated as above. I discussed with him that the emergency department is not capable of managing dental problems, and that he would need to follow-up with his dentist and oral surgeon. He was provided with a dose of Calion and a dental block was performed by Dr. Boland. The patient will be sent home with a home pack for OxyIR, but he was encouraged to follow-up with his surgeon regarding the prior authorization. The patient was agreeable and thankful for these treatments, however he states he was under the impression that we would be able to evaluate and potentially operate on his mouth again tonight. I advised him that the emergency department is not capable of that, and that we do not have an oral surgeon here to address these concerns. The patient did verbalize understanding. All questions were answered to his satisfaction. Discharge instructions reviewed, patient was discharged home in good condition. I attest that I have personally reviewed the patient's current medication list. Patient was found to have normal blood pressure on screening and does not require follow-up. Differential diagnosis includes odontalgia, periapical abscess, acute sinusitis , osteomyelitis, gingivitis, pulpitis, dental caries, periodontitis, malignancy , and others DIAGNOSIS: Odontalgia The chart was completed utilizing [employer] Speech voice recognition software. Grammatical errors, random word insertions, pronoun errors, and incomplete sentences are an occasional consequence of this system due to software limitations, ambient noise, and hardware issues. Any formal questions or concerns about the content, text, or information contained within the body of this dictation should be directly addressed to the provider for clarification. Problem List Medical Problems: (1) Generalized anxiety disorder Status: Chronic Current/Historical Medications Scheduled Cetirizine (Zyrtec), 10 MG PO DAILY Multivitamin (Multivitamin), 1 TAB PO DAILY Omeprazole (Prilosec), 20 MG PO DAILY Allergies Coded Allergies: Prednisone (Verified Allergy, Unknown, sob AND RACING HEART, 01/16/18) Sertraline (Verified Allergy, Unknown, nerves felt like on fire, 01/16/18) Ibuprofen (Verified Adverse Reaction, Mild, stomach sensitivity, 01/16/18) Vital Signs Date Time Temp Pulse Resp B/P (MAP) Pulse Ox O2 Delivery O2 Flow Rate FiO2 02/15/18 19:50 92 18 128/97 96 02/15/18 18:45 37.0 91 18 123/87 97 Room Air Medications Administered Medications (Trade) Dose Ordered Sig/Valeriano Route Start Time Stop Time Status Last Admin Dose Admin Acetaminophen/ Hydrocodone Bitart (Calion 5/325 Tab) 1 tab NOW STAT PO 02/15/18 19:06 02/15/18 19:08 DC 02/15/18 19:14 1 TAB Oxycodone HCl (Roxicodone Immediate Rel 5MG Home Pack) 1 homepack UD STAT PO 02/15/18 19:38 02/15/18 19:39 DC 02/15/18 19:44 1 HOMEPACK Departure Information Impression Primary Impression: Odontalgia Dispostion Home / Self-Care Condition GOOD Referrals Bertha Quarles DO (PCP) Patient Instructions My [facility] Additional Instructions You have been treated in the Emergency Department for Dental Pain. You have received pain medicine in the emergency department which impairs your ability to operate a vehicle. It is illegal for you to drive after receiving these medicines. You have been prescribed OxyIR to be used for pain control. This is a narcotic medication. You cannot drive or consume alcohol while on this medicine. This medicine should only be used for pain that cannot be controlled with over-the- counter pain medicines. Take your antibiotics and use the mouthwash as directed by your surgeon. For pain control, you can use the following [id number] medicines (if >12 yo): Ibuprofen(Motrin, Advil) may be used for fever or pain. Use 600mg every six hours as needed. Take with food. Avoid using more than 2400mg in a 24 hour period. Do not use 2400mg per day for more than three consecutive days without physician direction. Prolonged inappropriate use can lead to stomach upset or ulcers. (AND/OR) Acetaminophen(Tylenol) may be used for fever or pain. Use 1000mg every six hours as needed. Avoid using more than 3000mg in a 24 hour period. Refrain from smoking cigarettes or using chewing tobacco until you have been evaluated by your dentist. Keeping beverages lukewarm and consuming soft foods can decrease your pain. Warm compresses over the affected area may offer some relief. You MUST seek evaluation of your dental pain by a dentist following your visit to the Emergency Department. The Emergency Department is not capable of treating dental issues long-term. You should call your dentist as soon as possible to make an appointment for evaluation of your dental pain. Return to the emergency department if you develop the following symptoms despite treatment course outlined above: fever, intractable pain, increased redness, swelling, or purulent discharge.
--- NOTE | 2018-02-15 19:43 | EMERGENCY ROOM VISIT NOTE ---
ED Visit Note First contact with patient: 18:56 Dental Block Indication: dental pain Verbal consent obtained. Risks and benefits were explained with the usual customary discussion. A time out was taken. The left submandibular area was injected with marcaine. The patient tolerated the procedure well. Stressed the need for follow up with the patient's dentist. No evidence of abscess or carly's angina on exam. Problem List Medical Problems: (1) Generalized anxiety disorder Status: Chronic Current/Historical Medications Scheduled Cetirizine (Zyrtec), 10 MG PO DAILY Multivitamin (Multivitamin), 1 TAB PO DAILY Omeprazole (Prilosec), 20 MG PO DAILY Allergies Coded Allergies: Prednisone (Verified Allergy, Unknown, sob AND RACING HEART, 01/16/18) Sertraline (Verified Allergy, Unknown, nerves felt like on fire, 01/16/18) Ibuprofen (Verified Adverse Reaction, Mild, stomach sensitivity, 01/16/18) Vital Signs Date Time Temp Pulse Resp B/P (MAP) Pulse Ox O2 Delivery O2 Flow Rate FiO2 02/15/18 18:45 37.0 91 18 123/87 97 Room Air Medications Administered Medications (Trade) Dose Ordered Sig/Valeriano Route Start Time Stop Time Status Last Admin Dose Admin Acetaminophen/ Hydrocodone Bitart (Genoa 5/325 Tab) 1 tab NOW STAT PO 02/15/18 19:06 02/15/18 19:08 DC 02/15/18 19:14 1 TAB Departure Information Referrals Bertha Quarles DO (PCP) Patient Instructions [facility]
[2018-02-15 19:50] VITALS: BP 128/97; PULSE 92; O2SAT 96
== END 2018-02-15 19:50 | disposition home or self-care (01) ==
LOC: C.EDB 18:39 → C.EDD 19:50
DX: K08.89 Other specified disorders of teeth and supporting structures (principal); K21.9 Gastro-esophageal reflux disease without esophagitis; Z79.899 Other long term (current) drug therapy; Z88.8 Allergy status to other drugs, medicaments and biological substances